=== PATIENT | female | born 1940 | race Caucasian/White ===

== ENCOUNTER 2021-10-28 21:16 | Inpatient (IN) ==
[2021-10-28 22:53] LABS: Basophils # 0.1 10*3/uL (0.0-0.2); Basophils % 0.3 % (0.0-0.8); Eosinophils # 0.1 10*3/uL (0.0-0.87); Eosinophils % 0.5 % (0.00-10.9); Hematocrit 32.3 VOL% (35.7-47.0); Hemoglobin 10.6 GM/DL (12.0-16.0); Immature Granulocytes % 0.9 %; Immature Granulocytes Absolute 0.22 #; Lymphocytes # 1.5 10*3/uL (1.4-4.0); Lymphocytes % 6.4 % (21.3-54.2); Mean Corpuscular HGB Conc 32.8 GM/DL (32-36); Mean Corpuscular Volume 86.8 FL (87-102); Mean Platelet Volume 12.1 FL (9.6-12.0); Monocytes % 4.7 % (1.7-12.7); Neutrophils % 87.2 % (38.7-73.9); Platelet Count 312 T/CUMM (130-400); Red Blood Count 3.72 MC/CUMM (3.8-5.5); Red Cell Distribution Width 24.5 % (9.3-17.3); White Blood Count 23.7 T/CUMM (4-12)
[2021-10-28 23:08] LABS: INR 1.1; PT Patient Result 12.4 SECS (10.5-12.0); Partial Thromboplastin Time 37.6 SECS (23.8-32.1)
[2021-10-28 23:22] LABS: Bilirubin,Total 1.1 MG/DL (0.20-1.00); Calcium 8.8 MG/DL (8.5-10.1)
[2021-10-28 23:23] LABS: Albumin 1.9 G/DL (3.4-5.0); Potassium 4.7 MMOL/L (3.5-5.1); Thyroid Stimulating Hormone 65.4 uIU/ml (0.358-3.74); Total Protein 6.6 G/DL (6.4-8.2)
[2021-10-28 23:30] LABS: Lymphocytes 9 % (20-55); Platelet Estimate Adequate; Segmented Neutrophils 86 % (50-85); Total Cells Counted 100
[2021-10-28 23:31] LABS: Target Cells 1+
[2021-10-29] MEDS: PIPERACILLIN/TAZOBACTAM 3,375 MG in SODIUM CHLORIDE 0.9% 100 ML IV SCH ×3 (02:13→18:05)
[2021-10-29 08:31] LABS: Basophils # 0.1 10*3/uL (0.0-0.2); Basophils % 0.4 % (0.0-0.8); Eosinophils # 0.1 10*3/uL (0.0-0.87); Eosinophils % 0.4 % (0.00-10.9); Hemoglobin 9.2 GM/DL (12.0-16.0); Lymphocytes % 5.2 % (21.3-54.2); Mean Corpuscular HGB Conc 32.9 GM/DL (32-36); Mean Corpuscular Volume 86.4 FL (87-102); Mean Platelet Volume 12.7 FL (9.6-12.0); Monocytes % 5.7 % (1.7-12.7); Neutrophils % 87.3 % (38.7-73.9); Platelet Count 285 T/CUMM (130-400); Red Blood Count 3.24 MC/CUMM (3.8-5.5); Red Cell Distribution Width 24.6 % (9.3-17.3); White Blood Count 19.8 T/CUMM (4-12)
[2021-10-29 08:52] LABS: Albumin 1.7 G/DL (3.4-5.0); Potassium 4.6 MMOL/L (3.5-5.1); Total Protein 5.9 G/DL (6.4-8.2)
[2021-10-29] MEDS: PANTOPRAZOLE 40 MG VIAL IV SCH (09:13)
[2021-10-29 09:37] LABS: Hepatitis B Surface Ag Quant < 0.10 Index; Hepatitis B Surface Ag Result Non-Reactive (NonReactive); Hepatitis C Virus Ab Quant 0.08 Index; Hepatitis C Virus Ab Result Non-Reactive (NonReactive)
[2021-10-29 12:11] LABS: Neutrophils,Peritoneal Fluid 1 %
[2021-10-29 12:12] LABS: RBC,Peritoneal Fluid < 1 T/CUMM
[2021-10-29] MEDS: POLYETHYLENE GLYCOL POWDER 17 GM PACK PO SCH (21:31)
[2021-10-30] MEDS: PIPERACILLIN/TAZOBACTAM 3,375 MG in SODIUM CHLORIDE 0.9% 100 ML IV SCH ×3 (01:45→17:55)
[2021-10-30 06:29] LABS: Basophils # 0.1 10*3/uL (0.0-0.2); Basophils % 0.5 % (0.0-0.8); Eosinophils % 0.2 % (0.00-10.9); Hematocrit 29.3 VOL% (35.7-47.0); Hemoglobin 9.5 GM/DL (12.0-16.0); Immature Granulocytes % 0.8 %; Immature Granulocytes Absolute 0.13 #; Lymphocytes # 1.6 10*3/uL (1.4-4.0); Lymphocytes % 9.5 % (21.3-54.2); Mean Corpuscular HGB Conc 32.4 GM/DL (32-36); Mean Corpuscular Volume 87.7 FL (87-102); Monocytes % 6.7 % (1.7-12.7); Neutrophils % 82.3 % (38.7-73.9); Platelet Count 269 T/CUMM (130-400); Red Blood Count 3.34 MC/CUMM (3.8-5.5); Red Cell Distribution Width 25.2 % (9.3-17.3); White Blood Count 16.8 T/CUMM (4-12)
[2021-10-30 06:43] LABS: Albumin 1.6 G/DL (3.4-5.0); Bilirubin,Total 0.8 MG/DL (0.20-1.00); Calcium 8.2 MG/DL (8.5-10.1); Osmolality,Calculated 279.5 MOS/KG (273-304); Potassium 4.3 MMOL/L (3.5-5.1); Total Protein 5.9 G/DL (6.4-8.2)
[2021-10-30] MEDS: POLYETHYLENE GLYCOL POWDER 17 GM PACK PO SCH ×2 (08:54→21:17)
[2021-10-30] MEDS: PANTOPRAZOLE 40 MG VIAL IV SCH (08:54)
[2021-10-30] MEDS: ALBUMIN 25% 25 GM/100 ML VIAL IV SCH (09:36)
[2021-10-30 09:43] LABS: Free T4 (Free Thyroxine) 1.14 NG/DL (0.76-1.46)
[2021-10-30] MEDS: FUROSEMIDE 20 MG/2 ML VIAL IV SCH (10:43)
[2021-10-30] MEDS ORDERED: MIDAZOLAM 2 MG/2 ML VIAL IV ONE (10:59)
[2021-10-30] MEDS ORDERED: fentaNYL 100 MCG/2 ML VIAL IV ONE (10:59)
[2021-10-30] MEDS ORDERED: DIAZEPAM 5 MG TABLET PO ONE (10:59)
[2021-10-30 13:11] LABS: Smooth Muscle Antibody Negative (Negative)
[2021-10-30 14:53] LABS: Mitochondrial Antibody (M2) <0.1 U
[2021-10-30] MEDS: CALCIUM (CARBONATE)/VITAMIN D 600 MG-400 UNIT TABLET PO SCH (17:21)
[2021-10-30] MEDS: FOLIC ACID 1 MG TABLET PO SCH (17:21)
[2021-10-30] MEDS: SODIUM CHLORIDE 0.45% 1,000 ML IV SCH (17:21)
[2021-10-30] MEDS: MULTIVITAMIN (CENTRUM) TABLET PO SCH (17:21)
[2021-10-30] MEDS: FERROUS GLUCONATE 324 MG TABLET PO SCH (17:21)
[2021-10-30] MEDS: AMIODARONE 200 MG TABLET PO SCH ×2 (17:21→21:16)
[2021-10-30] MEDS: LATANOPROST 0.005% OPH SOLN 2.5 ML BOTTLE BOTH EYES SCH (21:17)
[2021-10-31] MEDS ORDERED: ACETAMINOPHEN 325 MG TABLET PO PRN (01:10)
[2021-10-31] MEDS: PIPERACILLIN/TAZOBACTAM 3,375 MG in SODIUM CHLORIDE 0.9% 100 ML IV SCH ×3 (01:20→17:20)
[2021-10-31] MEDS: LEVOTHYROXINE 100 MCG TABLET PO SCH (06:02)
[2021-10-31] MEDS ORDERED: LEVOTHYROXINE 88 MCG TABLET PO SCH (06:30)
[2021-10-31 06:46] LABS: Basophils # 0.1 10*3/uL (0.0-0.2); Basophils % 0.6 % (0.0-0.8); Eosinophils # 0.1 10*3/uL (0.0-0.87); Eosinophils % 0.5 % (0.00-10.9); Hematocrit 29.9 VOL% (35.7-47.0); Hemoglobin 9.8 GM/DL (12.0-16.0); Immature Granulocytes % 0.6 %; Immature Granulocytes Absolute 0.09 #; Lymphocytes # 1.7 10*3/uL (1.4-4.0); Mean Corpuscular HGB Conc 32.8 GM/DL (32-36); Mean Corpuscular Volume 87.4 FL (87-102); Mean Platelet Volume 12.3 FL (9.6-12.0); Monocytes % 6.8 % (1.7-12.7); Neutrophils % 80.5 % (38.7-73.9); Platelet Count 249 T/CUMM (130-400); Red Blood Count 3.42 MC/CUMM (3.8-5.5); Red Cell Distribution Width 25.3 % (9.3-17.3); White Blood Count 15.5 T/CUMM (4-12)
[2021-10-31 07:14] LABS: Bilirubin,Total 0.9 MG/DL (0.20-1.00); Calcium 8.9 MG/DL (8.5-10.1); Osmolality,Calculated 275.8 MOS/KG (273-304); Total Protein 5.9 G/DL (6.4-8.2)
[2021-10-31] MEDS: ALBUMIN 25% 25 GM/100 ML VIAL IV SCH (09:24)
[2021-10-31] MEDS: FERROUS GLUCONATE 324 MG TABLET PO SCH (09:25)
[2021-10-31] MEDS: MULTIVITAMIN (CENTRUM) TABLET PO SCH (09:25)
[2021-10-31] MEDS: CALCIUM (CARBONATE)/VITAMIN D 600 MG-400 UNIT TABLET PO SCH (09:25)
[2021-10-31] MEDS: FOLIC ACID 1 MG TABLET PO SCH (09:25)
[2021-10-31] MEDS: AMIODARONE 200 MG TABLET PO SCH ×2 (09:25→21:23)
[2021-10-31] MEDS: FUROSEMIDE 20 MG/2 ML VIAL IV SCH (09:26)
[2021-10-31] MEDS: PANTOPRAZOLE 40 MG VIAL IV SCH (09:26)
[2021-10-31] MEDS: POLYETHYLENE GLYCOL POWDER 17 GM PACK PO SCH ×2 (11:15→21:24)
[2021-10-31] MEDS: SODIUM CHLORIDE 0.45% 1,000 ML IV SCH (11:17)
[2021-10-31] MEDS: LATANOPROST 0.005% OPH SOLN 2.5 ML BOTTLE BOTH EYES SCH (21:24)
[2021-11-01] MEDS: PIPERACILLIN/TAZOBACTAM 3,375 MG in SODIUM CHLORIDE 0.9% 100 ML IV SCH ×2 (01:04→09:15)
[2021-11-01] MEDS: LEVOTHYROXINE 100 MCG TABLET PO SCH (05:50)
[2021-11-01 06:36] LABS: Basophils # 0.1 10*3/uL (0.0-0.2); Basophils % 0.6 % (0.0-0.8); Eosinophils % 0.2 % (0.00-10.9); Hematocrit 30.7 VOL% (35.7-47.0); Hemoglobin 9.8 GM/DL (12.0-16.0); Immature Granulocytes % 0.6 %; Lymphocytes # 1.8 10*3/uL (1.4-4.0); Lymphocytes % 10.5 % (21.3-54.2); Mean Corpuscular HGB Conc 31.9 GM/DL (32-36); Mean Platelet Volume 12.2 FL (9.6-12.0); Monocytes % 7.3 % (1.7-12.7); Neutrophils % 80.8 % (38.7-73.9); Platelet Count 242 T/CUMM (130-400); Red Blood Count 3.45 MC/CUMM (3.8-5.5); Red Cell Distribution Width 25.8 % (9.3-17.3); White Blood Count 16.9 T/CUMM (4-12)
[2021-11-01 06:55] LABS: Albumin 2.2 G/DL (3.4-5.0); Bilirubin,Total 1.1 MG/DL (0.20-1.00); Calcium 8.9 MG/DL (8.5-10.1); Potassium 3.6 MMOL/L (3.5-5.1); Total Protein 6.3 G/DL (6.4-8.2)
[2021-11-01] MEDS ORDERED: POTASSIUM CHLORIDE 20 MEQ TABLET PO ONE (08:29)
[2021-11-01] MEDS: MULTIVITAMIN (CENTRUM) TABLET PO SCH (08:45)
[2021-11-01] MEDS: CALCIUM (CARBONATE)/VITAMIN D 600 MG-400 UNIT TABLET PO SCH (08:45)
[2021-11-01] MEDS: AMIODARONE 200 MG TABLET PO SCH ×2 (08:45→21:15)
[2021-11-01] MEDS: FOLIC ACID 1 MG TABLET PO SCH (08:45)
[2021-11-01] MEDS: FERROUS GLUCONATE 324 MG TABLET PO SCH (08:45)
[2021-11-01] MEDS: PANTOPRAZOLE 40 MG VIAL IV SCH (08:46)
[2021-11-01] MEDS ORDERED: TORSEMIDE 20 MG TABLET PO SCH (09:00)
[2021-11-01] MEDS: POLYETHYLENE GLYCOL POWDER 17 GM PACK PO SCH ×2 (09:15→21:15)
[2021-11-01] MEDS ORDERED: SODIUM CHLORIDE 0.9% 250 ML IV ONE (09:30)
[2021-11-01] MEDS: metroNIDAZOLE INJ 500 MG/100 ML PREMIX IV SCH ×2 (10:45→17:28)
[2021-11-01] MEDS: SODIUM CHLORIDE 0.45% 1,000 ML IV SCH (10:53)
[2021-11-01] MEDS: LEVOFLOXACIN INJ 250 MG/50 ML PREMIX IV SCH (12:06)
[2021-11-01] MEDS ORDERED: ALBUTEROL/IPRATROPIUM 3 ML NEB RESP TX PRN (12:11)
[2021-11-01] MEDS: LATANOPROST 0.005% OPH SOLN 2.5 ML BOTTLE BOTH EYES SCH (21:15)
[2021-11-02] MEDS: metroNIDAZOLE INJ 500 MG/100 ML PREMIX IV SCH ×3 (02:07→18:06)
[2021-11-02] MEDS: LEVOTHYROXINE 100 MCG TABLET PO SCH (06:05)
[2021-11-02 07:17] LABS: Basophils # 0.1 10*3/uL (0.0-0.2); Basophils % 0.6 % (0.0-0.8); Eosinophils # 0.1 10*3/uL (0.0-0.87); Eosinophils % 0.3 % (0.00-10.9); Hematocrit 29.7 VOL% (35.7-47.0); Hemoglobin 9.7 GM/DL (12.0-16.0); Immature Granulocytes % 0.9 %; Immature Granulocytes Absolute 0.17 #; Lymphocytes # 2.6 10*3/uL (1.4-4.0); Lymphocytes % 13.2 % (21.3-54.2); Mean Corpuscular HGB Conc 32.7 GM/DL (32-36); Mean Corpuscular Volume 87.4 FL (87-102); Mean Platelet Volume 12.5 FL (9.6-12.0); Monocytes % 6.9 % (1.7-12.7); Neutrophils % 78.1 % (38.7-73.9); Platelet Count 251 T/CUMM (130-400); Red Cell Distribution Width 25.7 % (9.3-17.3); White Blood Count 19.7 T/CUMM (4-12)
[2021-11-02 07:32] LABS: Albumin 2.1 G/DL (3.4-5.0); Bilirubin,Total 1.4 MG/DL (0.20-1.00); Calcium 8.8 MG/DL (8.5-10.1); Potassium 4.6 MMOL/L (3.5-5.1); Total Protein 6.2 G/DL (6.4-8.2)
[2021-11-02 07:40] LABS: Hypochromia 1+; Lymphocytes 8 % (20-55); Microcytosis 1+; Platelet Estimate Adequate; Segmented Neutrophils 84 % (50-85); Total Cells Counted 100
[2021-11-02] MEDS: POLYETHYLENE GLYCOL POWDER 17 GM PACK PO SCH ×2 (09:54→21:00)
[2021-11-02] MEDS: FERROUS GLUCONATE 324 MG TABLET PO SCH (09:54)
[2021-11-02] MEDS: CALCIUM (CARBONATE)/VITAMIN D 600 MG-400 UNIT TABLET PO SCH (09:54)
[2021-11-02] MEDS: FOLIC ACID 1 MG TABLET PO SCH (09:54)
[2021-11-02] MEDS: MULTIVITAMIN (CENTRUM) TABLET PO SCH (09:54)
[2021-11-02] MEDS: PANTOPRAZOLE 40 MG VIAL IV SCH (09:54)
[2021-11-02] MEDS: LEVOFLOXACIN INJ 250 MG/50 ML PREMIX IV SCH (11:56)
[2021-11-02] MEDS: SODIUM CHLORIDE 0.45% 1,000 ML IV SCH (16:14)
[2021-11-02] MEDS: LATANOPROST 0.005% OPH SOLN 2.5 ML BOTTLE BOTH EYES SCH (21:00)
[2021-11-03] MEDS: metroNIDAZOLE INJ 500 MG/100 ML PREMIX IV SCH ×3 (01:59→18:43)
[2021-11-03] MEDS: LEVOTHYROXINE 100 MCG TABLET PO SCH (05:31)
[2021-11-03 06:08] LABS: Basophils # 0.1 10*3/uL (0.0-0.2); Basophils % 0.5 % (0.0-0.8); Eosinophils # 0.1 10*3/uL (0.0-0.87); Eosinophils % 0.2 % (0.00-10.9); Hematocrit 30.9 VOL% (35.7-47.0); Hemoglobin 10.1 GM/DL (12.0-16.0); Immature Granulocytes Absolute 0.22 #; Lymphocytes # 3.1 10*3/uL (1.4-4.0); Lymphocytes % 14.1 % (21.3-54.2); Mean Corpuscular HGB Conc 32.7 GM/DL (32-36); Mean Corpuscular Volume 87.5 FL (87-102); Mean Platelet Volume 12.1 FL (9.6-12.0); Monocytes % 6.3 % (1.7-12.7); Neutrophils % 77.9 % (38.7-73.9); Platelet Count 246 T/CUMM (130-400); Red Blood Count 3.53 MC/CUMM (3.8-5.5); Red Cell Distribution Width 25.5 % (9.3-17.3)
[2021-11-03 06:27] LABS: Bilirubin,Total 0.8 MG/DL (0.20-1.00); Calcium 9.2 MG/DL (8.5-10.1); Osmolality,Calculated 273.1 MOS/KG (273-304); Potassium 4.5 MMOL/L (3.5-5.1); Total Protein 6.3 G/DL (6.4-8.2)
[2021-11-03 06:30] LABS: Eosinophils 2 % (0-10); Hypochromia 1+; Lymphocytes 13 % (20-55); Microcytosis 1+; Segmented Neutrophils 81 % (50-85); Total Cells Counted 100
[2021-11-03 06:31] LABS: Ovalocytes Slight; Platelet Estimate Normal; Target Cells Slight
[2021-11-03] MEDS: CALCIUM (CARBONATE)/VITAMIN D 600 MG-400 UNIT TABLET PO SCH (08:53)
[2021-11-03] MEDS: FOLIC ACID 1 MG TABLET PO SCH (08:53)
[2021-11-03] MEDS: FERROUS GLUCONATE 324 MG TABLET PO SCH ×2 (08:53→09:41)
[2021-11-03] MEDS: MULTIVITAMIN (CENTRUM) TABLET PO SCH (08:53)
[2021-11-03] MEDS: PANTOPRAZOLE 40 MG VIAL IV SCH ×2 (08:54→21:01)
[2021-11-03] MEDS: POLYETHYLENE GLYCOL POWDER 17 GM PACK PO SCH ×2 (08:54→21:04)
[2021-11-03 09:21] LABS: Anti-Nuclear Antibody Pattern Homogeneous
[2021-11-03] MEDS: LEVOFLOXACIN INJ 250 MG/50 ML PREMIX IV SCH (10:33)
[2021-11-03] MEDS: ONDANSETRON 4 MG/2 ML VIAL IV PRN ×2 (11:53→18:01)
[2021-11-03] MEDS: CEFEPIME 1,000 MG in SODIUM CHLORIDE 0.9% 100 ML IV SCH (17:56)
[2021-11-03] MEDS: SODIUM CHLORIDE 0.45% 1,000 ML IV SCH (21:02)
[2021-11-03] MEDS: LATANOPROST 0.005% OPH SOLN 2.5 ML BOTTLE BOTH EYES SCH (21:07)
[2021-11-04] MEDS: CEFEPIME 1,000 MG in SODIUM CHLORIDE 0.9% 100 ML IV SCH ×3 (01:07→21:46)
[2021-11-04] MEDS: metroNIDAZOLE INJ 500 MG/100 ML PREMIX IV SCH ×3 (01:40→17:22)
[2021-11-04 03:57] LABS: Basophils # 0.1 10*3/uL (0.0-0.2); Basophils % 0.5 % (0.0-0.8); Eosinophils % 0.1 % (0.00-10.9); Hematocrit 30.7 VOL% (35.7-47.0); Hemoglobin 9.7 GM/DL (12.0-16.0); Immature Granulocytes % 0.9 %; Immature Granulocytes Absolute 0.17 #; Lymphocytes % 15.1 % (21.3-54.2); Mean Corpuscular HGB Conc 31.6 GM/DL (32-36); Mean Corpuscular Volume 89.2 FL (87-102); Mean Platelet Volume 11.8 FL (9.6-12.0); Monocytes % 5.8 % (1.7-12.7); Neutrophils % 77.6 % (38.7-73.9); Platelet Count 233 T/CUMM (130-400); Red Blood Count 3.44 MC/CUMM (3.8-5.5); Red Cell Distribution Width 25.9 % (9.3-17.3); White Blood Count 19.9 T/CUMM (4-12)
[2021-11-04 04:18] LABS: Bilirubin,Total 1.1 MG/DL (0.20-1.00); Osmolality,Calculated 277.1 MOS/KG (273-304); Potassium 4.5 MMOL/L (3.5-5.1); Total Protein 6.1 G/DL (6.4-8.2)
[2021-11-04] MEDS: LEVOTHYROXINE 100 MCG TABLET PO SCH (06:19)
[2021-11-04] MEDS: POLYETHYLENE GLYCOL POWDER 17 GM PACK PO SCH ×2 (09:31→21:53)
[2021-11-04] MEDS: MULTIVITAMIN (CENTRUM) TABLET PO SCH (09:32)
[2021-11-04] MEDS: CALCIUM (CARBONATE)/VITAMIN D 600 MG-400 UNIT TABLET PO SCH (09:32)
[2021-11-04] MEDS: FOLIC ACID 1 MG TABLET PO SCH (09:32)
[2021-11-04] MEDS: PANTOPRAZOLE 40 MG VIAL IV SCH ×2 (09:33→21:46)
[2021-11-04] MEDS: ONDANSETRON 4 MG/2 ML VIAL IV PRN (09:41)
[2021-11-04] MEDS: SODIUM CHLORIDE 0.45% 1,000 ML IV SCH (12:06)
[2021-11-04] MEDS ORDERED: LEVOFLOXACIN INJ 500 MG/100 ML PREMIX IV ONE (13:00)
[2021-11-04] MEDS ORDERED: TUBERCULIN SKIN TEST 0.1 ML SYRINGE INTRADERM ONE (14:56)
[2021-11-04] MEDS: SODIUM CHLORIDE 0.9% 1,000 ML IV SCH (17:22)
[2021-11-04] MEDS: LATANOPROST 0.005% OPH SOLN 2.5 ML BOTTLE BOTH EYES SCH (21:46)
[2021-11-05] MEDS: metroNIDAZOLE INJ 500 MG/100 ML PREMIX IV SCH ×3 (02:06→17:19)
[2021-11-05 05:30] LABS: Basophils # 0.1 10*3/uL (0.0-0.2); Basophils % 0.5 % (0.0-0.8); Eosinophils # 0.1 10*3/uL (0.0-0.87); Eosinophils % 0.3 % (0.00-10.9); Hematocrit 27.8 VOL% (35.7-47.0); Hemoglobin 9.1 GM/DL (12.0-16.0); Immature Granulocytes % 0.9 %; Immature Granulocytes Absolute 0.16 #; Lymphocytes # 2.9 10*3/uL (1.4-4.0); Lymphocytes % 16.7 % (21.3-54.2); Mean Corpuscular HGB Conc 32.7 GM/DL (32-36); Mean Corpuscular Volume 88.8 FL (87-102); Mean Platelet Volume 12.1 FL (9.6-12.0); Monocytes % 6.3 % (1.7-12.7); Neutrophils % 75.3 % (38.7-73.9); Platelet Count 220 T/CUMM (130-400); Red Blood Count 3.13 MC/CUMM (3.8-5.5); Red Cell Distribution Width 25.9 % (9.3-17.3); White Blood Count 17.5 T/CUMM (4-12)
[2021-11-05] MEDS: LEVOTHYROXINE 100 MCG TABLET PO SCH (05:46)
[2021-11-05 05:51] LABS: Hypochromia 1+; Microcytosis 1+; Ovalocytes Slight; Target Cells Slight
[2021-11-05 05:53] LABS: Albumin 1.9 G/DL (3.4-5.0); Bilirubin,Total 0.7 MG/DL (0.20-1.00); Calcium 8.8 MG/DL (8.5-10.1); Potassium 4.2 MMOL/L (3.5-5.1); Total Protein 5.8 G/DL (6.4-8.2)
[2021-11-05] MEDS: PANTOPRAZOLE 40 MG VIAL IV SCH ×2 (08:54→21:39)
[2021-11-05] MEDS: CEFEPIME 1,000 MG in SODIUM CHLORIDE 0.9% 100 ML IV SCH ×2 (08:54→21:37)
[2021-11-05] MEDS: SODIUM CHLORIDE 0.9% 1,000 ML IV SCH ×2 (08:55→12:42)
[2021-11-05] MEDS: CALCIUM (CARBONATE)/VITAMIN D 600 MG-400 UNIT TABLET PO SCH (08:56)
[2021-11-05] MEDS: FOLIC ACID 1 MG TABLET PO SCH (08:56)
[2021-11-05] MEDS: POLYETHYLENE GLYCOL POWDER 17 GM PACK PO SCH ×2 (08:56→21:39)
[2021-11-05] MEDS: MULTIVITAMIN (CENTRUM) TABLET PO SCH (08:56)
[2021-11-05] MEDS: SODIUM CHLORIDE 0.45% 1,000 ML IV SCH (10:10)
[2021-11-05] MEDS: FUROSEMIDE 20 MG TABLET PO SCH (11:20)
[2021-11-05] MEDS ORDERED: LACTATED RINGERS 1,000 ML IV SCH (12:30)
[2021-11-05] MEDS ORDERED: LEVOFLOXACIN INJ 250 MG/50 ML PREMIX IV SCH (13:00)
[2021-11-05] MEDS: ONDANSETRON 4 MG/2 ML VIAL IV PRN (21:39)
[2021-11-05] MEDS: LATANOPROST 0.005% OPH SOLN 2.5 ML BOTTLE BOTH EYES SCH (21:40)
[2021-11-06] MEDS: metroNIDAZOLE INJ 500 MG/100 ML PREMIX IV SCH ×2 (01:17→09:53)
[2021-11-06] MEDS: LEVOTHYROXINE 100 MCG TABLET PO SCH (06:00)
[2021-11-06 06:01] LABS: Basophils # 0.1 10*3/uL (0.0-0.2); Basophils % 0.4 % (0.0-0.8); Eosinophils # 0.1 10*3/uL (0.0-0.87); Eosinophils % 0.4 % (0.00-10.9); Hematocrit 28.4 VOL% (35.7-47.0); Hemoglobin 9.2 GM/DL (12.0-16.0); Immature Granulocytes % 1.1 %; Immature Granulocytes Absolute 0.18 #; Lymphocytes # 2.7 10*3/uL (1.4-4.0); Lymphocytes % 15.9 % (21.3-54.2); Mean Corpuscular HGB Conc 32.4 GM/DL (32-36); Mean Corpuscular Volume 90.2 FL (87-102); Mean Platelet Volume 12.7 FL (9.6-12.0); Monocytes % 6.1 % (1.7-12.7); Neutrophils % 76.1 % (38.7-73.9); Platelet Count 210 T/CUMM (130-400); Red Blood Count 3.15 MC/CUMM (3.8-5.5); Red Cell Distribution Width 26.5 % (9.3-17.3); White Blood Count 16.8 T/CUMM (4-12)
[2021-11-06 06:31] LABS: Albumin 1.7 G/DL (3.4-5.0); Bilirubin,Total 0.7 MG/DL (0.20-1.00); Osmolality,Calculated 286.4 MOS/KG (273-304); Potassium 4.7 MMOL/L (3.5-5.1); Total Protein 5.7 G/DL (6.4-8.2)
[2021-11-06 07:34] LABS: Platelet Estimate Adequate
[2021-11-06 07:36] LABS: Stomatocytes Slight; Tear Drop Cells Slight
[2021-11-06] MEDS ORDERED: SPIRONOLACTONE 25 MG TABLET PO SCH (09:00)
[2021-11-06] MEDS: CEFEPIME 1,000 MG in SODIUM CHLORIDE 0.9% 100 ML IV SCH (09:14)
[2021-11-06] MEDS: PANTOPRAZOLE 40 MG VIAL IV SCH (09:15)
[2021-11-06] MEDS: FOLIC ACID 1 MG TABLET PO SCH (09:47)
[2021-11-06] MEDS: FUROSEMIDE 20 MG TABLET PO SCH (09:47)
[2021-11-06] MEDS: CALCIUM (CARBONATE)/VITAMIN D 600 MG-400 UNIT TABLET PO SCH (09:47)
[2021-11-06] MEDS: MULTIVITAMIN (CENTRUM) TABLET PO SCH (09:47)
[2021-11-06] MEDS: POLYETHYLENE GLYCOL POWDER 17 GM PACK PO SCH (09:47)
[2021-11-06 11:08] VITALS: BP 128/42
== END 2021-11-06 12:30 | DRG 432 ==
LOC: N.ED 21:16 → SUATTDRO 10-29 00:20 → N.EDINP 10-29 00:20 → N.3E 10-29 03:24
PROVIDERS: ADMIT Family Medicine; ATTEND Internal Medicine